=== PATIENT | female | born 1975 | race Caucasian/White ===

== ENCOUNTER 2016-10-24 11:25 | Emergency (ER) | payer OTHER ==
--- NOTE | ~2016-10-24 | CT71 ---
[facility] A Service [facility] RADIOLOGY TEXT RESULTS PATIENT: LUZ ELENA ESCOBAR LOCATION: SED : 73 UNIT #: [id number] AGE: [address]: YOKASTA CRUZ SEX: F ORDER DR: [id number] [place] [id number] E MR#: [id number] #: [id number] NAME: LUZ ELENA ESCOBAR. : 1975 SEX: F STUDY DATE/TIME: 10/24/2016 12:43 UNIT: SED ROOM: STUDY DESCRIPTION: CT Head Wo Contrast Attending Physician: (Res) Yokasta Cruz Ordering Physician: Preston Pereyra M.D. Primary Care Physician: No Primary Care Physician MEDICAL IMAGING REPORT This report is preliminary unless electronic signature is present. EXAM CT head, 10/24/2016. HISTORY Syncopal episode last p.m. Headache. Lightheaded today. Chest pain, back pain, headache. TECHNIQUE CT head performed skull base through vertex without intravenous contrast. This CT exam was performed with one or more of the following radiation dose reduction techniques: automatic exposure control, adjustment of mA and/or kV according to patient size, and iterative reconstruction. COMPARISON STUDIES 09/09/2007. FINDINGS Brainstem unremarkable. Cerebellum and cerebral hemispheres show normal monzon matter, white matter differentiation. No hemorrhage. No evidence of acute cortical ischemia. Midline structures nondisplaced. Basal ganglia intact. Ventricles, cisterns and sulci normal in size and contour. No intra or extraaxial mass effect or abnormal intracranial fluid collection. Intraorbital soft tissues unremarkable. The visualized paranasal sinuses and mastoid air cells are clear. IMPRESSION 1. Normal CT of the head. If the patient has ongoing neurologic symptoms, consider follow-up imaging. Dictated by... [facility] A Service [facility] RADIOLOGY TEXT RESULTS PATIENT: LUZ ELENA ESCOBAR LOCATION: SED : 73 UNIT #: [id number] AGE: [address]: YOKASTA CRUZ SEX: F ORDER DR: Choco Bailey M.D. THIS IS AN ELECTRONICALLY VERIFIED REPORT Choco Bailey M.D. at 10/25/2016 12:11 PM Estefani TD: 10/24/2016 18:07 JOB #: [id number] MEDICAL IMAGING REPORT Page 1 of 1
--- NOTE | ~2016-10-24 | EKG ---
PATIENT: LUZ ELENA ESCOBAR UNIT #: [id number] Ventricular Rate: 70 BPM Atrial Rate: 69 BPM P-R Interval: 144 ms QRS Duration: 110 ms Q-T Interval: 406 ms QTC Calculation(Bezet): 438 ms P [place]: 15 degrees Calculated R [place]: -13 degrees Calculated T [place]: 13 degrees Diagnosis Line: Normal sinus rhythm Diagnosis Line: Incomplete right bundle branch block Diagnosis Line: Borderline ECG Diagnosis Line: When compared with ECG of 10-JAN-2015 21:21, Diagnosis Line: Current undetermined rhythm precludes rhythm Diagnosis Line: comparison, needs review Diagnosis Line: Confirmed by OSMEL MARQUEZ MD ([id number]) on Diagnosis Line: 10/26/2016 4:49:24 PM INTERPRETING MD: ALMA CAT
--- NOTE | ~2016-10-24 | CR63 ---
[facility] A Service of [facility] RADIOLOGY TEXT RESULTS PATIENT: LUZ ELENA ESCOBAR LOCATION: SED : 73 UNIT #: [id number] AGE: [address]: YOKASTA CRUZ SEX: F ORDER DR: [id number] [place] [id number] E MR#: [id number] #: [id number] NAME: LUZ ELENA ESCOBAR. : 1975 SEX: F STUDY DATE/TIME: 10/24/2016 12:50 UNIT: SED ROOM: STUDY DESCRIPTION: CR Chest 2 View Ordering Physician: [facility] MEDICAL IMAGING REPORT This report is preliminary unless electronic signature is present. EXAM Chest x-ray 10/24 HISTORY Syncopal episode last night. Headache and light-headedness today. Chest and back pain. COMPARISON STUDIES 01/10/2015. FINDINGS PA and lateral examination of the chest upright shows a good expansion of the parenchyma with a normal distribution of the pulmonary vascularity. There is no indication of congestion, effusion, infiltrate, tumor, or nodular density. The pleural reflections and diaphragmatic contours are normal. The cardiac silhouette and mediastinal anatomy is within normal limits. IMPRESSION Normal chest. Dictated by... Timbo Omer Jr., M.D. THIS IS AN ELECTRONICALLY VERIFIED REPORT Timbo Omer Jr., M.D. at 10/26/2016 7:19 AM RLK/pcl TD: 10/24/2016 17:50 JOB #: [id number] [facility] A Service of [facility] / [facility] RADIOLOGY TEXT RESULTS PATIENT: LUZ ELENA ESCOBAR LOCATION: SED : 73 UNIT #: [id number] AGE: [address]: YOKASTA CRUZ SEX: F ORDER DR: MEDICAL IMAGING REPORT Page 1 of 1
[~2016-10-24 11:25] MED LIST: ABILIFY PO; ABILIFY20 MG PO; ALBUTEROL17 GM INH; ALPRAZOLAM PO; BACTRIM DS TABL1 TA1 PO; BENTYL20 MG PO; CELEXA20 MG PO; CIPRO PO; DEMEROL50 MG PO; DOXYCYCLINE PO; EFFEXOR XR PO; FAMOTIDINE PO; FLEXERIL10 MG PO; FLOMAX0.4 M1 PO; HYDROCODON-ACE1 EAC2 PO; HYDROCODON-ACE1 EAC9 PO; IBUPROFEN800 MG PO; K-DUR20 ME1 PO; LORTAB 5/500 TA1 TA1 PO; LORTAB 7.5-5001 TAB PO; MEDROL DOSEPAK4 MG PO; MEDROL PO; NAPROSYN500 MG PO; PERCOCET PO; PHENERGAN PO; PHENERGAN25 MG PO; PREVACID PO; PROMETHAZINE HC25 MG PO; SYMBICORT INH; SYNTHROID0.05 MG PO; VICODIN 5/1 TAB 5/50 PO; VICODIN 5/500 T1 TAB PO; VOLTAREN75 MG PO; ZOFRAN ODT4 MG PO; ZYRTEC PO; ZYRTEC10 M1 PO; [UNRECOGNIZED DRUG - CODE] TOP
[2016-10-24] MEDS ORDERED: PROTONIX PO (11:49)
[2016-10-24 12:17] LABS: BASOPHIL% 0.7 % (0-2.5); EOSINOPHIL# 0.2 X10e3 (0-0.7); EOSINOPHIL% 2.3 % (0.0-7.0); HEMATOCRIT 46.3 % (35.0-45.0); HEMOGLOBIN 15.8 gm/dL (12.0-16.0); LYMPHOCYTE# 1.8 X10e3 (1.0-3.5); LYMPHOCYTE% 28.1 % (17.0-45.0); MEAN CELL VOLUME 88.7 FL (83-96); MEAN CORPUSCULAR HEMOGLOBIN 30.4 PG (28-34); MEAN CORPUSCULAR HGB CONC 34.2 g/dL (30-36); MEAN PLATELET VOLUME 8.7 FL (6.5-11.5); MONOCYTE# 0.3 X10e3 (0-1.0); NEUTROPHIL# 4.2 X10e3 (1.5-7.1); NEUTROPHIL% 63.9 % (40-75); PLATELET COUNT 175 X10e3 (140-420); RED BLOOD COUNT 5.21 X10e (3.90-5.30); RED CELL DISTRIBUTION WIDTH 12.8 % (11.0-15.5); WHITE BLOOD COUNT 6.5 X10e3 (4.0-10.5)
[2016-10-24 12:22] LABS: DIFF IND NO
[2016-10-24 12:31] LABS: MICRO INDICATED? YES; URINE APPEARANCE CLEAR; URINE BILIRUBIN NEG (NEG); URINE BLOOD 1+ (NEG); URINE COLOR YELLOW; URINE GLUCOSE NEG (NORM); URINE KETONE TRACE (NEG); URINE LEUKOCYTE ESTERASE NEG (NEG); URINE NITRATE NEG (NEG); URINE PROTEIN NEG (NEG); URINE SOURCE CLEAN CATCH; URINE UROBILINOGEN 0.2 MG/DL (NORM)
[2016-10-24 12:36] LABS: ALBUMIN SERUM 3.9 g/dL (3.5-5.0); BILIRUBIN,TOTAL 0.5 mg/dL (0.2-2.0); BUN/CREATININE RATIO 12.5; CALCIUM SERUM 8.4 mg/dL (8.4-10.2); CREATININE SERUM 0.8 mg/dL (0.6-1.4); GLOM FILT RATE Estimated 91.7 mL/min (>60); POTASSIUM 3.3 mmol/L (3.5-5.1)
[2016-10-24 12:38] LABS: POC - CKMB 1.9 ng/mL (0.0-7.9)
[2016-10-24 12:39] LABS: POC - TROPONIN <0.05 ng/mL (<=0.05)
[2016-10-24 12:41] LABS: CULTURE INDICATED? NO; URINE BACTERIA NEG (NEG); URINE RBC 0-2 /[HPF] (0-2); URINE SQUAMOUS EPITHELIAL CELL OCCAS /[HPF]; URINE WBC NEG /[HPF] (0-5)
== END 2016-10-24 13:58 | disposition home or self-care (01) ==
LOC: SED 11:25
PROVIDERS: Physician Assistant
DX: R55 Syncope and collapse (principal); R11.0 Nausea; J44.9 Chronic obstructive pulmonary disease, unspecified; Z90.710 Acquired absence of both cervix and uterus; Z90.89 Acquired absence of other organs; Z90.49 Acquired absence of other specified parts of digestive tract; Z88.1 Allergy status to other antibiotic agents; Z88.0 Allergy status to penicillin; Z88.5 Allergy status to narcotic agent
CPT/HCPCS: 36415; 70450; 71020; 80053; 81003; 82553; 84484; 85025; 93005; 96360; 99284